=== PATIENT | male | born 1980 | race American Indian/Alaskan Native ===

== ENCOUNTER 2019-08-18 13:34 | Emergency (ER) | payer MEDICAID ==
--- NOTE | 2019-08-18 14:25 | Event Note ---
ED Screening Note Date of service: 08/18/19 Time: 14:21 ED Screening Note: Pt complains of seizure activity x last night. He states he noted upon waking today he had but his tongue and was very confused and tired. He states his roommate told him he was sitting without response to his voice and pt states he does not remember this denies headache, vision changes, or dizziness This initial assessment/diagnostic orders/clinical plan/treatment(s) is/are subject to change based on patients health status, clinical progression and re- assessment by fellow clinical providers in the ED. Further treatment and workup at subsequent clinical providers discretion. Patient/guardian urged not to elope from the ED as their condition may be serious if not clinically assessed and managed. Initial orders include: Labs CT
--- NOTE | 2019-08-18 15:02 | Cat Scan Report ---
CT BRAIN: 08/18/2019 INDICATION / CLINICAL INFORMATION: possible seizure. COMPARISON: None available. FINDINGS: BRAIN/INTRACRANIAL STRUCTURES: Unenhanced CT images of the brain and a straight no evidence of acute intracranial abnormality. Ventricles and sulci are slightly prominent in size for a patient of this age, consistent with underl cuate diffuse cerebral and cerebellar atrophy. There is no CT evidence of acute ischemic injury, hemorrhage, or mass. There are no abnormal extra-ax ial fluid collections. EXTRACRANIAL STRUCTURES: Unremarkable. IMPRESSION: No acute abnormality. Atrophic change. All CT scans at this location are performed using dose reduction to ALARA by means of automated expos ure control. Signer Name: David Calero MD Signed: 08/18/2019 2:58 PM Workstation Name: [id number]
[2019-08-18] MEDS ORDERED: LORazepam 2 MG/ML VIAL IV ONE (15:38)
[2019-08-18 15:43] LABS: Basophils # (Auto) 0.1 K/mm3 (0.0-0.1); Basophils % (Auto) 0.8 % (0.0-1.8); Eosinophils % (Auto) 0.8 % (0.0-4.3); Hematocrit 34.3 % (35.5-45.6); Hemoglobin 11.1 gm/dl (11.8-15.2); Lymphocytes # (Auto) 1.5 K/mm3 (1.2-5.4); Mean Corpuscular HGB Conc 32 % (32-34); Mean Corpuscular Volume 91 fl (84-94); Monocytes # (Auto) 0.5 K/mm3 (0.0-0.8); Monocytes % (Auto) 8.5 % (0.0-7.3); Platelet Count 166 K/mm3 (140-440); Red Blood Count 3.76 M/mm3 (3.65-5.03); Red Cell Distribution Width 13.1 % (13.2-15.2)
--- NOTE | 2019-08-18 15:43 | Emergency Department Report ---
ED Seizure HPI - General Chief Complaint: Seizure Stated Complaint: SEIZURE Time Seen by Provider: 08/18/19 14:21 Source: patient Mode of arrival: Ambulatory Limitations: No Limitations - History of Present Illness Initial Comments: A 39-year-old [place] male withpast medical history of seizures who is presenting with seizure last night. Patient states he woke up and he had bitten his tongue and assumed he had a seizure. Patient drove himself here. The patient was screened in the emergency department then while waiting for wrong had an additional seizure. Patient is currently on my exam is postictal and unable to give any meaningful history. Patient is able to speak in full sentences but is very confused and does not understand why he is here. Patient does become slightly aggressive. - Related Data Previous Rx's Medication Instructions Recorded Last Taken Type levETIRAcetam [Keppra TAB] 500 mg PO BID #60 tablet 08/18/19 Unknown Rx Allergies Allergy/AdvReac Type Severity Reaction Status Date / Time lisinopril Allergy Angioedema Verified 08/18/19 13:45 ED Review of Systems ROS: Stated complaint: SEIZURE Other details as noted in HPI Comment: All other systems reviewed and negative ED Past Medical Hx - Past Medical History Previous Medical History?: Yes Hx Hypertension: Yes Hx Seizures: Yes (?) Additional medical history: sleep apnea - Social History Smoking Status: Unknown if ever smoked Substance Use Type: None - Medications Home Medications: Home Medications Medication Instructions Recorded Confirmed Last Taken Type levETIRAcetam [Keppra TAB] 500 mg PO BID #60 tablet 08/18/19 Unknown Rx ED Physical Exam - General Limitations: No Limitations General appearance: alert, anxious, in distress - Head Head exam: Present: atraumatic, normocephalic - Eye Eye exam: Present: normal appearance, PERRL, EOMI - ENT ENT exam: Present: mucous membranes moist, other (abrasions to the distal tongue) - Neck Neck exam: Present: normal inspection - Respiratory Respiratory exam: Present: normal lung sounds bilaterally. Absent: respiratory distress, wheezes, rales, rhonchi - Cardiovascular Cardiovascular Exam: Present: regular rate, normal rhythm. Absent: systolic murmur, diastolic murmur, rubs, gallop - GI/Abdominal GI/Abdominal exam: Present: soft, normal bowel sounds. Absent: distended, tenderness, guarding, rebound - Rectal Rectal exam: Present: deferred - Extremities Exam Extremities exam: Present: normal inspection - Back Exam Back exam: Present: normal inspection - Neurological Exam Neurological exam: Present: alert, altered, CN II-XII intact, normal gait. Absent: motor sensory deficit - Psychiatric Psychiatric exam: Present: normal affect, normal mood - Skin Skin exam: Present: warm, dry, intact, normal color. Absent: rash ED Course Vital Signs 08/18/19 08/18/19 08/18/19 13:45 15:59 16:21 Temperature 98.5 F Pulse Rate 92 H 125 H 115 H Respiratory 17 18 16 Rate Blood Pressure 137/87 Blood Pressure 137/87 129/81 [Left] O2 Sat by Pulse 99 99 99 Oximetry 08/18/19 16:50 Temperature Pulse Rate 97 H Respiratory 18 Rate Blood Pressure Blood Pressure 116/91 [Left] O2 Sat by Pulse 100 Oximetry - Reevaluation(s) Reevaluation #1: 08/18/19 16:59 At this time the patient is alert and oriented 3 although he is slightly sleepy from medications that were given. Patient states that he has a remote history of closed head injury and concussion and this may be why he is having seizures. Patient states he's had between 2 and 3 seizures since the head injury but has never seen a neurologist. Patient also states that he has issues with sleeping and then sleep deprived for the last several days. This plus the head injury of factors that could've led to the patient having multiple seizures today. Patient will be started on Keppra given neurology follow-up. The patient be held in the emergency department until he is coherent on his feet and stable and steady with his gait since the patient states that he has to take a bus to get home. ED Medical Decision Making - Lab Data Result diagrams: 08/18/19 14:52 08/18/19 14:52 - Radiology Data CT BRAIN: 08/18/2019 INDICATION / CLINICAL INFORMATION: possible seizure. COMPARISON: None available. FINDINGS: BRAIN/INTRACRANIAL STRUCTURES: Unenhanced CT images of the brain and a straight no evidence of acute intracranial abnormality. Ventricles and sulci are slightly prominent in size for a patient of this age, consistent with underlying diffuse cerebral and cerebellar atrophy. There is no CT evidence of acute ischemic injury, hemorrhage, or mass. There are no abnormal extra-axial fluid collections. EXTRACRANIAL STRUCTURES: Unremarkable. IMPRESSION: No acute abnormality. Atrophic change. All CT scans at this location are performed using dose reduction to ALARA by means of automated exposure control. Signer Name: David Calero MD Signed: 08/18/2019 2:58 PM Workstation Name: [id number] Critical care attestation.: If time is entered above; I have spent that time in minutes in the direct care of this critically ill patient, excluding procedure time. ED Disposition Clinical Impression: Seizure Disposition: DC-01 TO HOME OR SELFCARE Is pt being admited?: No Does the pt Need Aspirin: No Condition: Stable Instructions: Recurrent Seizures Adult (ED) Prescriptions: levETIRAcetam [Keppra TAB] 500 mg PO BID #60 tablet Referrals: NYLA NORIEGA MD [Staff Physician] - 3-5 Days Time of Disposition: 17:02
[2019-08-18] MEDS ORDERED: LORazepam 1 MG TAB PO ONE (15:59)
[2019-08-18] MEDS ORDERED: levETIRAcetam 1000 MG/NS 0.75% 1,000 MG/100 ML BAG IV ONE ×2 (16:00→17:00)
[2019-08-18] MEDS ORDERED: levETIRAcetam 1,000 MG in DEXTROSE 5% IN WATER 100 ML IV SCH (16:00)
[2019-08-18 16:03] LABS: Alanine Aminotransferase 176 units/L (7-56); Albumin 3.8 g/dL (3.9-5); BUN/Creatinine Ratio 6; Blood Urea Nitrogen 8 mg/dL (9-20); Calcium 8.5 mg/dL (8.4-10.2); Hemolysis Index 14
[2019-08-18 16:50] VITALS: BP 116/91
[2019-08-18 16:50] LABS: Amphetamine Screen,Urine PRESUMPTIVE NEGATIVE; Cannabinoid Screen,Urine PRESUMPTIVE NEGATIVE; Cocaine Screen,Urine PRESUMPTIVE NEGATIVE; Methadone Screen,Urine PRESUMPTIVE NEGATIVE; Opiate Screen,Urine PRESUMPTIVE NEGATIVE
[2019-08-18 17:04] LABS: Benzodiazepines Screen,Urine PRESUMPTIVE POSITIVE
== END 2019-08-18 17:55 | disposition home or self-care (01) ==
LOC: ED 13:34
DX: S00.512A Abrasion of oral cavity, initial encounter (principal); R56.9 Unspecified convulsions; I10 Essential (primary) hypertension; G47.30 Sleep apnea, unspecified; Z79.899 Other long term (current) drug therapy; Z88.5 Allergy status to narcotic agent; Y33.XXXA Other specified events, undetermined intent, initial encounter; Y93.89 Activity, other specified; Y92.89 Other specified places as the place of occurrence of the external cause; Y99.8 Other external cause status
CPT/HCPCS: 36415; 70450; 80053; 80307; 83735; 85025; 93005; 93010; 96365; 96375; 99285; J1953; J2060

== ENCOUNTER 2019-08-24 11:09 | Emergency (ER) | payer MEDICAID ==
--- NOTE | 2019-08-24 12:04 | Event Note ---
ED Screening Note Date of service: 08/24/19 Time: 12:00 ED Screening Note: This is a 39 y.o. M. that presents to the ER with hematochezia x 1 week. Associated symptoms of abdominal pain and diarrhea. PMH of seizure, insomnia, sleep apnea, and HTN This initial assessment/diagnostic orders/clinical plan/treatment(s) is/are subject to change based on patients health status, clinical progression and re- assessment by fellow clinical providers in the ED. Further treatment and workup at subsequent clinical providers discretion. Patient/guardian urged not to elope from the ED as their condition may be serious if not clinically assessed and managed. Initial orders include: Labs
[2019-08-24 12:40] LABS: Basophils # (Auto) 0.1 K/mm3 (0.0-0.1); Basophils % (Auto) 0.9 % (0.0-1.8); Eosinophils # (Auto) 0.1 K/mm3 (0.0-0.4); Eosinophils % (Auto) 1.2 % (0.0-4.3); Hematocrit 30.4 % (35.5-45.6); Hemoglobin 10.1 gm/dl (11.8-15.2); Lymphocytes # (Auto) 1.4 K/mm3 (1.2-5.4); Lymphocytes % (Auto) 23.9 % (13.4-35.0); Mean Corpuscular HGB Conc 33 % (32-34); Mean Corpuscular Volume 92 fl (84-94); Monocytes # (Auto) 0.8 K/mm3 (0.0-0.8); Monocytes % (Auto) 12.7 % (0.0-7.3); Platelet Count 294 K/mm3 (140-440); Red Blood Count 3.31 M/mm3 (3.65-5.03); Red Cell Distribution Width 15.6 % (13.2-15.2)
[2019-08-24 12:49] LABS: INR 1.03 (0.87-1.13)
[2019-08-24 12:50] LABS: Partial Thromboplastin Time 29.8 Sec. (24.2-36.6)
[2019-08-24 12:54] LABS: Alanine Aminotransferase 74 units/L (7-56); Albumin 3.8 g/dL (3.9-5); BUN/Creatinine Ratio 8; Blood Urea Nitrogen 6 mg/dL (9-20); Calcium 8.7 mg/dL (8.4-10.2); Hemolysis Index 4
--- NOTE | 2019-08-24 13:28 | Emergency Department Report ---
HPI - General Chief Complaint: GI Bleed Time Seen by Provider: 08/24/19 12:00 - HPI HPI: 39-year-old -[place] male presents to the emergency department with complaint of rectal bleeding or seen blood in his stool over the past week. He denies any abdominal, pelvic or rectal pain or any trauma. He says it is bright red blood and that he thinks it is a large quantity when he sees it in the water and on the toilet paper. He has a past medical history of seizures, bipolar disorder, cardiomyopathy. He is not on any blood thinners. He has not taken anything for her symptoms. The patient was here about one week ago secondary to his seizures. ED Past Medical Hx - Past Medical History Previous Medical History?: Yes Hx Hypertension: Yes Hx Seizures: Yes (?) Hx Psychiatric Treatment: Yes ([employer]) Additional medical history: sleep apnea, dilated cardiomyopathy - Social History Smoking Status: Former Smoker Substance Use Type: None - Medications Home Medications: Home Medications Medication Instructions Recorded Confirmed Last Taken Type levETIRAcetam [Keppra TAB] 500 mg PO BID #60 tablet 08/18/19 Unknown Rx ED Review of Systems ROS: Stated complaint: BLOOD IN STOOL Other details as noted in HPI Comment: All other systems reviewed and negative Constitutional: denies: chills, fever Respiratory: denies: shortness of breath Cardiovascular: denies: chest pain Gastrointestinal: hematochezia. denies: abdominal pain, vomiting, melena Musculoskeletal: denies: back pain Physical Exam - Physical Exam Vital Signs: Vital Signs 08/24/19 11:58 Temperature 98.8 F Pulse Rate 81 Respiratory 18 Rate Blood Pressure 144/92 O2 Sat by Pulse 99 Oximetry Physical Exam: GENERAL: The patient is well-developed well-nourished. HENT: Normocephalic. Atraumatic. Patient has moist mucous membranes. EYES: Extraocular motions are intact. NECK: Supple. Trachea is midline. CHEST/LUNGS: Clear to auscultation. There is no respiratory distress noted. HEART/CARDIOVASCULAR: Regular. There is no tachycardia. There is no murmur. ABDOMEN: Abdomen is soft, nontender. Patient has normal bowel sounds. There is no abdominal distention. SKIN: Skin is warm and dry. NEURO: The patient is awake, alert, and oriented. The patient is cooperative. Normal speech. MUSCULOSKELETAL: There is no tenderness or deformity. There is no limitation range of motion. There is no evidence of acute injury. RECTAL: No gross blood. Stool is negative on guaiac testing. No hemorrhoid or rectal lesions seen. ED Course Vital Signs 08/24/19 11:58 Temperature 98.8 F Pulse Rate 81 Respiratory 18 Rate Blood Pressure 144/92 O2 Sat by Pulse 99 Oximetry ED Medical Decision Making - Lab Data Result diagrams: 08/24/19 12:19 08/24/19 12:19 - Medical Decision Making This patient presents with a one-week history of some rectal bleeding or blood seen on the stool when having a bowel movement. He has no back pain, abdominal pain, pelvic pain, rectal pain. Hemoglobin is 10.1 which is slightly decreased from when he was here one week ago but certainly not at the level that requires transfusion. Rest of his blood work is unremarkable. A rectal examination was done that did not show any hemorrhoids, rectal lesions, gross blood in the stool obtained was negative on guaiac testing. His vital signs stable throughout his ED course. For all these reasons patient appears safe for discharge home at this time. However he will be given a referral for gastroenterology and unders tands the importance of follow-up as he may need a colonoscopy in the near future. He will return to the emergency Department with any worsening of his symptoms or any acute distress. - Differential Diagnosis hemorrhoids, malignancy, diverticulosis Critical Care Time: No Critical care attestation.: If time is entered above; I have spent that time in minutes in the direct care of this critically ill patient, excluding procedure time. ED Disposition Clinical Impression: Rectal bleeding Disposition: DC-01 TO HOME OR SELFCARE Is pt being admited?: No Condition: Stable Instructions: Rectal Bleeding (ED) Additional Instructions: I'm giving you a referral for a local manager car, Dr. Beltre, who is part of a larger gastroenterology group, [facility]. Please follow-up with someone from gastroenterology in the next few days regarding your rectal bleeding. Return to the emergency Department with any worsening of your symptoms or with any acute distress. Referrals: MARY BELTRE MD [Staff Physician] - 2-3 Days [facility] [Provider Group] - 2-3 Days Forms: Accompanied Note Time of Disposition: 13:28
[2019-08-24 14:43] VITALS: BP 109/84
== END 2019-08-24 14:47 | disposition home or self-care (01) ==
LOC: ED 11:09
DX: K62.5 Hemorrhage of anus and rectum (principal); I10 Essential (primary) hypertension; F31.9 Bipolar disorder, unspecified; I42.0 Dilated cardiomyopathy; Z87.891 Personal history of nicotine dependence; Z91.013 Allergy to seafood; Z88.5 Allergy status to narcotic agent
CPT/HCPCS: 36415; 80053; 85025; 85610; 85730; 99283